=== PATIENT | female | born 1965 | race Caucasian/White ===

== ENCOUNTER 2019-06-22 17:28 | Emergency (ER) | payer OTHER ==
--- OUTSIDE RECORDS SUMMARY | 2019-06-22 18:07 | XMS REPORT | Continuity of Care Document ---
:1965 External Reference #:[id number] Author Name Yudi Lara MD Address [address] [place] [address] Care Team Providers Name Role Phone Marco Perez - Gastroenterology Care Team Information Mash Tub Cooker Operator Cuate Bruno DPM - Hydroelectric Plant Technician Care Team Information Mash Tub Cooker Operator [phone] Pramod Mohan MD - Gastroenterology Care Team Information Mash Tub Cooker Operator [phone] [facility] - Care Team Information Mash Tub Cooker Operator Orthopaedic Surgery [facility] Care Team Information Mash Tub Cooker Operator Problems Active Problems Provider Date Allergic rhinitis Yudi Lara MD Onset: 01/04/2013 Generalized anxiety disorder Yudi Lara MD Onset: 02/10/2005 Nicotine dependence Yudi Lara MD Onset: 06/02/2016 Mixed hyperlipidemia Yudi Lara MD Onset: 06/12/2019 Social History Type Date Description Comments Sex Unknown Tobacco Use Start: 08/22/79 current cigarette smoker 6 per day - trying to cut back Smoking Status Reviewed: 10/17/18 current cigarette smoker 6 per day - trying to cut back ETOH Use Occasionally consumes alcohol Tobacco Use Start: Unknown Patient is a current smoker, smokes some days Allergies, Adverse Reactions, Alerts Active Allergies Reaction Severity Comments Date Ariane Asa Hives 10/24/2014 Medications Active Medications SIG Qnty Indications Ordering Date Provider Ventolin HFA 2 every 4 hours 8gm R05 Yudi Lara, 06/08/2018 108(90Base) as needed mcg/Act Aerosol Nicotrol 6 - 10 cartridges 168units F17.200 Yudi Lara, 03/03/2018 10mg Inhaler daily inhaled; wean over 1 month Lexapro take one tablet 90tabs F41.1 Yudi Lara, 10/05/2016 20mg Tablets by mouth every MD day Vitamin D-1000 Maximum 1 by mouth every Yudi Lara, 05/30/2015 Strength day in winter mos 1000Unit Tablets [place]-3 Fish Oil 2 po qd Yudi Lara, 02/26/2011 1200mg MD Capsules Pseudoephedrine HCL ER 1 by mouth every Unknown morning as needed 120mg Tablets ER 12HR Multivitamin Adult 1 by mouth every Unknown day Tablets Acetaminophen Extra 2 tabs by mouth Unknown Strength every 6 hours as 500mg Tablets needed Diphenhydramine HCL take 1 capsule by Unknown 25mg mouth every 8 Capsules hours as needed for puritis may take 2 at bedtime Fluticasone Propionate 2 sprays each Unknown nare every day 50mcg/Act Suspension History Medications Amoxicillin 1 by mouth 20tabs J01.90 Yudi Lara, 12/21/2018 - 875mg Tablets twice a day for 12/31/2018 10 days Cyclobenzaprine HCL 1 by mouth 30tabs Yudi Lara, 12/21/2018 - 10mg every at MD 06/11/2019 Tablets bedtime x 1-2 weeks, then as needed muscle spasm Meloxicam 1 tab by mouth 30tabs Yudi Lara, 12/21/2018 - 15mg Tablets as needed 06/11/2019 Medications Administered in Office Medication SIG Qnty Indications Ordering Provider Date PPD Schedule, Nurses 08/16/2017 Injection PPD Madelyn De La Cruz NP 03/10/2015 Injection Immunizations CPT Code Status Date Vaccine Reaction Lot # 12579 Given 05/26/2019 Influenza Virus Vaccine,Quadrivalent,Split,Preserv Free, 0.5mL,[place] [id number] Given 06/10/2018 Afluria Or Fluvirin Flu Vac Intramuscular [id number] Given 05/24/2017 Flu Vaccine NOS [id number] Given 05/31/2016 [facility] [address] Given 05/30/2015 Hepatitis B Vaccine Adult Dosage [id number] 57056 Given 03/12/2015 Menactra/Menveo Meningococcal Vaccine [id number] 56174 Given 03/12/2015 MMR Virus Immunization [id number] 88632 Given 03/10/2015 Hepatitis B Vaccine Adult Dosage 58427 Given 05/11/2014 Afluria Or Fluvirin Flu Vac Intramuscular 50372 Given 05/11/2013 Afluria Or Fluvirin Flu Vac Intramuscular 85497 Given 02/26/2011 Tdap (Adacel) Ages 7 And Above Only 21492 Given 06/22/2010 Menactra/Menveo Meningococcal Vaccine 04309 Given 03/28/1973 IPV / Poliomyelitis Immunization 19984 Given 03/28/1973 DTP Immunization 65154 Given 11/23/1971 Mumps Immunization 22351 Given 05/08/1970 Rubella Immunization 52660 Given 12/27/1969 Tetanus And Diptheria Toxoid 7 Years And Older Preserv Free 36039 Given 03/19/1969 IPV / Poliomyelitis Immunization 21604 Given 05/19/1968 IPV / Poliomyelitis Immunization 80913 Given 03/20/1968 DTP Immunization 36413 Given 03/18/1968 IPV / Poliomyelitis Immunization 28471 Given 12/14/1964 IPV / Poliomyelitis Immunization 93165 Given 04/24/1964 DTP Immunization 61778 Given 1965 Measles Immunization 33266 Given 1965 IPV / Poliomyelitis Immunization 90231 Given 1965 DTP Immunization 05302 Given 1965 DTP Immunization 05665 Given 1965 DTP Immunization 28182 Given 1965 IPV / Poliomyelitis Immunization 05891 Given 1965 IPV / Poliomyelitis Immunization 35687 Refused 10/17/2018 Shingrix (Shingles) Zoster Vaccine HZV, Recombinant , Subunit, Adj Vital Signs Date Vital Result Comment 06/12/2019 4:18pm Weight 167.00 lb Heart Rate 99 /min BP Systolic 124 mmHg BP Diastolic 74 mmHg Respiratory Rate 18 /min Height 61.5 inches 5'1.50" O2 % BldC Oximetry 98 % Ra BMI (Body Mass Index) 31.0 kg/m2 12/21/2018 9:39am Body Temperature 98.0 F Weight 168.00 lb Heart Rate 89 /min BP Systolic 126 mmHg BP Diastolic 70 mmHg Height 61.5 inches 5'1.50" O2 % BldC Oximetry 98 % Ra BMI (Body Mass Index) 31.2 kg/m2 Results Test Date Facility Test Result H/L Range Note Lipid Panel-fcmg 04/28/2019 [facility] Cholesterol 283 mg /dL High <200 1, 2 (315)- - Triglycerides 115 mg/dL <150 3 HDL Cholesterol 82 mg/dL >40 4 LDL-Cholesterol 178 mg/dL < 100 5 CBC With Auto 04/28/2019 [facility] White Blood 4.4 K/uL Normal 3.1-10.7 Diff (315)- - Count Red Blood Count 4.61 M/uL Normal 3.90-5.40 Hemoglobin 15.1 gm/dL Normal 11.6-15.8 Hematocrit 43.1 % Normal 36.0-46.1 Mean Cell Volume 93.5 fl Normal 80.9-99.0 Mean Corpuscular HGB 32.8 pg High 25.9-32.7 Mean Corpuscular HGB Conc 35.0 g/dL High 30.8-34.3 Platelet Count 231 K/uL Normal 155-360 Red Cell Distri Width SD 42.2 fl Normal 36-47 Red Cell Distri Width %CV 12.2 % Normal 11.7-14.4 Mean Platelet Volume 10.8 fl Normal 8.9-12.4 Neut% 49.9 % Normal 40.4-72.8 Lymph % 37.2 % Normal 20.0-42.0 [place] % 7.8 % Normal 4.3-13.2 Eo% 4.4 % Normal 0.0-6.6 Bas% 0.5 % Normal 0.0-1.1 Immature Grans 0.2 % Normal 0.0-5.0 NRBC % 0.0 /100WBC < 10/ 100 WBC Neut# 2.18 K/uL Normal 1.8-7.0 Lymph # 1.62 K/uL Normal 1.0-4.0 [place] # 0.34 K/uL Normal 0.3-0.9 Eos # 0.19 K/uL Normal 0.0-0.5 Baso # 0.02 K/uL Normal 0.0-0.1 Immature Grans Absolute 0.01 K/uL NRBC # 0.00 K/uL Laboratory test 04/28/2019 [facility] Thyroid Stim 2.67 uIU/mL Normal 0.30-4.20 finding (315)- - Hormone CMP, Comp 04/28/2019 [facility] Glucose 98 mg/dL Normal 74-106 Metabolic-Fcmg (315)- - BUN 17 mg/dL Normal 7-18 Creatinine 0.8 mg/dL Normal 0.6-1.3 Glom Filtration Rate, Estimate >60 mL/min >60 If >60 mL/min >60 6 BUN/Creat 21.2 ratio Sodium 140 mmol/L Normal 136-145 Potassium 4.4 mmol/L Normal 3.5-5.1 Chloride 106 mmol/L Normal 98-107 Carbon Dioxide 29 mmol/L Normal 21-32 Anion Gap 5 mEq/L Low 8-16 Calcium 9.1 mg/dL Normal 8.5-10.1 Total Protein 7.3 g/dL Normal 6.4-8.2 Albumin 3.8 g/dL Normal 3.4-5.0 Globulin 3.5 g/dL Normal 1.9-4.3 Alb/Glob 1.1 ratio Bilirubin,Total 0.5 mg/dL Normal 0.2-1.0 Sgot/Ast 13 U/L Low 15-37 7 SGPT/Alt 21 U/L Normal 12-78 Alkaline Phosphatase 70 U/L Normal 45-117 1 Z01.419, F41.1 2 Reference Guidelines*: Desirable: ........... < 200 mg/dL Borderline High: ..... 200-239 mg/dL High: ................ >= 240 mg/dL * The National Cholesterol Education Program (NCEP) 3 Reference Guidelines*: Normal: ............. < 150 mg/dL Borderline High: .... 150-199 mg/dL High: ............... 200-499 mg/dL Very High: .......... > 500 mg/dL * Source: National Cholesterol Education Program (NCEP) 4 Reference Guidelines*: Low HDL: ..... < 40 mg/dL Normal: ..... 40-60 mg/dL Desirable: ... > 60 mg/dL *The National Cholesterol Education Program(NCEP) 5 Reference Guidelines*: Optimal:........... <100 mg/dL Near Optimal....... 100-129 mg/dL Borderline High.... 130-159 mg/dL High............... 160-189 mg/dL Very High.......... >=190 mg/dL * Source: National Cholesterol Education Program (NCEP) 6 Note: Persistent reduction for 3 months or more in an eGFR <60 mL/min/1.73 m2 defines CKD. Patients with eGFR values >/=60 mL/min/1.73 m2 may also have CKD if evidence of persistent proteinuria is present. The original MDRD equation for estimated GFR is not valid for patients less than 18 years of age. Additional information may be found at www.kdoqi.org. 7 Values below the stated reference ranges of AST and ALT can be seen in normal populations. Clinical correlation is suggested. Procedures Date Code Description Status 02/06/2019 38233375 Mammogram Completed 09/06/2016 85769961 Colonoscopy Completed Medical Devices Description No Information Available Encounters Type Date Location Provider Dx Diagnosis Office Visit 12/21/2018 [facility] Yudi Lara MD S09.11xA Strain of muscle and 9:30a tendon of head, initial encounter J01.90 Acute sinusitis, unspecified Z68.31 Body mass index (BMI) 31.0-31.9, adult Assessments Date Code Description Provider 06/12/2019 E66.9 Obesity, unspecified Yudi Lara MD 06/12/2019 J30.9 Allergic rhinitis, unspecified Yudi Lara MD 06/12/2019 F41.1 Generalized anxiety disorder Yudi Lara MD 06/12/2019 F17.200 Nicotine dependence, unspecified, Yudi Lara MD uncomplicated 06/12/2019 E78.2 Mixed hyperlipidemia Yudi Lara MD 06/12/2019 Z68.31 Body mass index (BMI) 31.0-31.9, adult Yudi Lara MD 12/21/2018 S09.11xA Strain of muscle and tendon of head, initial Yudi Lara MD encounter 12/21/2018 J01.90 Acute sinusitis, unspecified Yudi Lara MD 12/21/2018 Z68.31 Body mass index (BMI) 31.0-31.9, adult Yudi Lara MD Plan of Treatment Future Appointment(s):12/14/2019 4:00 pm - Yudi Lara MD at [facility]10/18/2019 4:00 pm - Yudi Lara MD at [facility]06/12/2019 - Yudi Lara MDE66.9 Obesity, unspecifiedComments:Counseled about strategies for weight loss and the impact of weight on chronic medical problems.Work on healthy lifestyle, with regular exercise (20 min daily will help) and eat a healthy diet. Formal diet plans work best.J30.9 Allergic rhinitis, unspecifiedComments:She is uses Nasacort during her allergy season.Follow up:6-months follow up without fasting labs prior.F41.1 Generalized anxiety disorderComments:She is doing well on the continue current medication. Continue with this.F17.200 Nicotine dependence, unspecified, uncomplicatedComments:-Tobacco Use - explained that she may have withdrawal symptoms for about 3 days. After that time, she will be dealing with "breaking the habit" - it takes about 2 weeks to break a habit. Substitute a different behavior for smoking or change the environment. The last part of this is dealing with the addiction. Nicotine is extremely addictive and the cravings can last for years, although they improve with time.E78.2 Mixed hyperlipidemiaNew Labs:LDL Cholesterol Profile, Scheduled: got/Ast, Scheduled: 12/07/19GPT/Alt, Scheduled: 12/07/19Comments:NEW PROBLEM - She does not need cholesterol medication at this time. If she quit smoking her risk for heart attack or stroke will be at 2.0; currently cardiovascular risk is 4.8%. LDL is 178. HDL 82. Discussed about various strategies about diet control. 5A's for Cardiovascular Disease Counseling 1. ASSESS: Patient has E78.2 Mixed hyperlipidemia2. ADVISE: Discussed the importance of regular exercise, DASH diet, stress reduction, avoidance of NSAIDS and low cholesterol diet. Counseled on statintherapy. 3. AGREE: Patient agrees to implement the modifications discussed today.4. ASSIST: Patientwas offered nutritional therapy and provided information on the risks of cardiovascular disease.5. ARRANGE: We will follow-up at next visit to see how the patient has implemented the above changes.Timespent counseling the patient on CVD is 8 minutes 10 minutes 15 minutes CVD Screening Completed ([id number]) Z68.31 Body mass index (BMI) 31.0-31.9, adultComments:The BMI is the ratio between height and weight. Goal for a person under age 65 is between 18.5 and25. You are overweight. Work on healthy lifestyle, with regular exercise ( 20 min daily will help) and eat a healthy diet. Formal diet plans work best. Functional Status Description No Information Available Mental Status Description No Information Available Referrals Description No Information Available
[2019-06-22 18:15] VITALS: BP 132/85
--- NOTE | 2019-06-22 18:41 | UC ---
Throat Pain/Nasal Finesse HPI - HPI Summary HPI Summary: Patient is a 54-year-old female presenting with for nasal congestion and URI symptoms 8 days and sinus tenderness, sore throat, and productive cough 2 days. Patient states she thought she was getting over her cold symptoms but they have worsened since onset. He notes chest tightness. Denies shortness of breath and wheezing. Denies nausea and vomiting. Denies fever and chills. Patient states she gets bronchitis every year and symptoms are usually relieved by an inhaler which she no longer has. - History of Current Complaint Chief Complaint: UCRespiratory Stated Complaint: COUGH, CONGESTION Hx Obtained From: Patient Hx Last Menstrual Period: 06/12/16 Onset/Duration: Gradual Onset, Lasting Days Pain Intensity: 3 - Allergies/Home Medications Allergies/Adverse Reactions: Allergies Allergy/AdvReac Type Severity Reaction Status Date / Time aspirin Allergy Hives/Diff. 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 Negative: Fever, Chills ENT: Positive: Sore Throat, Nasal Discharge, Sinus Congestion, Sinus Pain/ Tenderness. Negative: Ear Ache Respiratory: Positive: Cough, Other - Feeling of chest tightness. Negative: Shortness Of Breath Cardiovascular: Positive: Negative Gastrointestinal: Positive: Negative. Negative: Abdominal Pain, Vomiting, Diarrhea, Nausea Musculoskeletal: Positive: Negative Neurological: Positive: Negative Physical Exam Triage Information Reviewed: Yes Appearance: No Pain Distress, Well-Nourished, Ill-Appearing Vital Signs: Initial Vital Signs Temp 98.7 F 06/22/19 18:10 Pulse 78 06/22/19 18:10 Resp 16 06/22/19 18:10 BP 132/85 06/22/19 18:10 Pulse Ox 98 06/22/19 18:10 Vital Signs Reviewed: Yes Eyes: Positive: Conjunctiva Clear ENT: Positive: Hearing grossly normal, Pharyngeal erythema, Nasal congestion, Nasal drainage, TMs normal, Hoarse voice, Sinus tenderness - maxillary, Uvula midline. Negative: Tonsillar swelling, Tonsillar exudate, Trismus, Muffled voice Neck exam: Normal Neck: Positive: Supple, Nontender, No Lymphadenopathy Respiratory Exam: Normal Respiratory: Positive: Lungs clear, Normal breath sounds, No respiratory distress. Negative: Crackles, Rhonchi, Stridor, Wheezing Cardiovascular Exam: Normal Cardiovascular: Positive: RRR Neurological: Positive: Alert Psychological: Positive: Age Appropriate Behavior Throat Pain/Nasal Course/Dx - Course Course Of Treatment: I treated with Augmentin for sinusitis. I also refilled her albuterol inhaler. Instructed patient to continue symptomatic treatment and follow up with PCP if symptoms persist longer than 7-10 days. Instructed to go to ED if symptoms worsen. Patient voiced understanding and agreed with the treatment plan. - Differential Dx/Diagnosis Provider Diagnosis: Acute rhinosinusitis, Acute bronchitis Discharge ED - Sign-Out/Discharge Documenting (check all that apply): Patient Departure All imaging exams completed and their final reports reviewed: No Studies - Discharge Plan Condition: Stable Disposition: HOME Prescriptions: Albuterol HFA INHALER* [Ventolin HFA Inhaler*] 1 - 2 puff INH Q6H PRN #1 mdi PRN Reason: Sob/Wheezing Amoxicillin/Clavulanate TAB* [Augmentin TAB 875*] 875 mg PO BID #14 tab Patient Education Materials: Acute Bronchitis (ED), Rhinosinusitis (ED) Referrals: Yudi Lara MD [Primary Care Provider] - If Needed Additional Instructions: As discussed, take Augmentin as prescribed for the treatment of your bacterial sinusitis. You may use the albuterol inhaler as directed for relief of your chest tightness. You may also take an over the counter decongestant, such as sudafed or mucinex, as directed to help reduce mucus production. You may take ibuprofen and/or tylenol as directed for pain relief. Get plenty of rest and fluids. Follow up with your primary care doctor if your symptoms do not begin to resolve within 7 days. Currently emergency room if he experiences worsening symptoms including fever higher than 102, nausea and vomiting, and difficulty breathing. - Billing Disposition and Condition Condition: STABLE Disposition: Home
== END 2019-06-22 18:54 | disposition home or self-care (01) ==
LOC: UCCORT 17:28
DX: J32.9 Chronic sinusitis, unspecified (principal); J20.9 Acute bronchitis, unspecified; F17.210 Nicotine dependence, cigarettes, uncomplicated; Z88.6 Allergy status to analgesic agent
CPT/HCPCS: 99202; G0463